=== PATIENT | male | born 1995 | race Caucasian/White ===

== ENCOUNTER 2017-12-28 16:03 | Emergency (ER) | payer OTHER ==
[~2017-12-28] VITALS: Ht 180.3 cm; Wt 124.2 kg
[2017-12-28 16:05] VITALS: TEMP 37.1; O2SAT 98; Ht 180.3 cm; Wt 124.2 kg
[2017-12-28] MEDS ORDERED: ACETAMINOPHEN 325 MG TAB PO STA (16:14)
[2017-12-28] MEDS ORDERED: SODIUM CHLORIDE 0.9% 500ML 500 ML IV STA (16:14)
[2017-12-28] MEDS ORDERED: SODIUM CHLORIDE 0.9% 1000ML 1,000 ML IV STA (16:14)
--- NOTE | 2017-12-28 16:17 | EMERGENCY ROOM VISIT NOTE ---
History Report prepared by Alondra: Mary Banks Under the Supervision of: Dr. Carmen Barry M.D. First contact with patient: 16:11 Chief Complaint: CHEST PAIN Stated Complaint: CHEST PAIN History of Present Illness The patient is a 22 year old male who presents to the Emergency Room with complaints of left-sided chest pain beginning shortly prior to arrival. He describes the pain as sharp. He states that the pain came on when he was walking and states that he was also having pulsations in his head. He states that he had the chest pain about 3 times and that he had the pulsations about 6 times. The patient currently reports having the pulsation feeling in his head but not the chest pain. The patient reports that his pulsation in his head feels slower than his pulse. The patient denies having any visual changes or shortness of breath. The patient reports feeling well prior to his symptoms today. The patient reports eating a snack before he left for work today. He states that he has asthma and that he uses an inhaler. The patient denies a history of smoking. The patient denies recent trips, surgeries, and hospitalizations. He also denies drinking last night. Source of History: patient Onset: shortly prior to arrival Position: chest (left) Quality: sharp Associated Symptoms: + headache (pulsations in his head), No SOB Note: denies: visual changes Review of Systems See HPI for pertinent positives & negatives. A total of 10 systems reviewed and were otherwise negative. Past Medical & Surgical Medical Problems: (1) Asthma Family History Patient reports no known family medical history. Social History Smoking Status: Never Smoker Marital Status: single Occupation Status: employed Current/Historical Medications Scheduled PRN Albuterol Hfa (Ventolin Hfa), 2 PUFFS INH Q4H PRN for Rescue/SOB Allergies Coded Allergies: No Known Allergies (Unverified , 12/28/17) Physical Exam Vital Signs Date Time Temp Pulse Resp B/P (MAP) Pulse Ox O2 Delivery O2 Flow Rate FiO2 12/28/17 18:21 59 18 104/62 97 12/28/17 17:41 67 18 102/61 98 Room Air 12/28/17 17:02 52 18 144/68 98 Room Air 66 114/68 64 135/79 12/28/17 16:31 57 12/28/17 16:05 98 Room Air 12/28/17 16:05 98 Room Air 12/28/17 16:05 37.1 56 16 105/46 98 Room Air Physical Exam Vital signs reviewed. General: Well-appearing male, in no significant distress. HEENT: No scleral icterus, PERRLA, neck supple. Atraumatic. Cardiovascular: Regular rate and rhythm, no extra sounds. Pulmonary: Clear to auscultation bilaterally, normal work of breathing. Abdomen: Soft, nontender, nondistended, positive bowel sounds. Musculoskeletal: Atraumatic, no peripheral edema. Neurologic: Patient awake alert and oriented x 3 Skin: Warm, dry, no rash Medical Decision & Procedures ER Provider Diagnostic Interpretation: Radiology results as stated below per my review and radiologist interpretation: CHEST ONE VIEW PORTABLE CLINICAL HISTORY: Chest pain. COMPARISON STUDY: No previous studies for comparison. FINDINGS: Lung volumes are at the lower limits of normal. There is no consolidation or evidence for pulmonary edema. No pneumothorax or pleural effusion is noted. Cardiomediastinal silhouette is unremarkable. IMPRESSION: No acute cardiopulmonary findings. Electronically signed by: Jase Altman M.D. 12/28/2017 4:38 PM Dictated Date/Time: 12/28/2017 4:38 PM Laboratory Results 12/28/17 16:45 Red Blood Count 5.14, Mean Corpuscular Volume 81.1, Mean Corpuscular Hemoglobin 28.2, Mean Corpuscular Hemoglobin Concent 34.8, Mean Platelet Volume 9.0, Neutrophils (%) (Auto) 57.3, Lymphocytes (%) (Auto) 32.2, Monocytes (%) (Auto) 7.6, Eosinophils (%) (Auto) 2.3, Basophils (%) (Auto) 0.3, Neutrophils # (Auto) 3.56, Lymphocytes # (Auto) 2.00, Monocytes # (Auto) 0.47, Eosinophils # (Auto) 0.14, Basophils # (Auto) 0.02 12/28/17 16:45 Test 12/28/17 16:45 White Blood Count 6.21 K/uL (4.8-10.8) Red Blood Count 5.14 M/uL (4.7-6.1) Hemoglobin 14.5 g/dL (14.0-18.0) Hematocrit 41.7 % (42-52) Mean Corpuscular Volume 81.1 fL (80-100) Mean Corpuscular Hemoglobin 28.2 pg (25-34) Mean Corpuscular Hemoglobin Concent 34.8 g/dl (32-36) Platelet Count 225 K/uL (130-400) Mean Platelet Volume 9.0 fL (7.4-10.4) Neutrophils (%) (Auto) 57.3 % Lymphocytes (%) (Auto) 32.2 % Monocytes (%) (Auto) 7.6 % Eosinophils (%) (Auto) 2.3 % Basophils (%) (Auto) 0.3 % Neutrophils # (Auto) 3.56 K/uL (1.4-6.5) Lymphocytes # (Auto) 2.00 K/uL (1.2-3.4) Monocytes # (Auto) 0.47 K/uL (0.11-0.59) Eosinophils # (Auto) 0.14 K/uL (0-0.5) Basophils # (Auto) 0.02 K/uL (0-0.2) RDW Standard Deviation 37.6 fL (36.4-46.3) RDW Coefficient of Variation 12.6 % (11.5-14.5) Immature Granulocyte % (Auto) 0.3 % Immature Granulocyte # (Auto) 0.02 K/uL (0.00-0.02) Anion Gap 7.0 mmol/L (3-11) Est Creatinine Clear Calc Drug Dose 149.6 ml/min Estimated GFR () 118.1 Estimated GFR (Non- 101.9 BUN/Creatinine Ratio 10.4 (10-20) Calcium Level 9.3 mg/dl (8.5-10.1) Magnesium Level 1.8 mg/dl (1.8-2.4) Total Bilirubin 0.7 mg/dl (0.2-1) Direct Bilirubin 0.2 mg/dl (0-0.2) Aspartate Amino Transf (AST/SGOT) 21 U/L (15-37) Alanine Aminotransferase (ALT/SGPT) 38 U/L (12-78) Alkaline Phosphatase 84 U/L (45-117) Troponin I < 0.015 ng/ml (0-0.045) Total Protein 7.7 gm/dl (6.4-8.2) Albumin 4.1 gm/dl (3.4-5.0) Laboratory results per my review. Medications Administered Medications (Trade) Dose Ordered Sig/[place] Route Start Time Stop Time Status Last Admin Dose Admin Acetaminophen (Tylenol Tab) 650 mg NOW STAT PO 12/28/17 16:14 12/28/17 16:16 DC 12/28/17 17:01 650 MG Sodium Chloride 500 ml @ 999 mls/hr Q31M STAT IV 12/28/17 16:14 12/28/17 16:44 DC 12/28/17 17:01 999 MLS/HR Sodium Chloride 1,000 ml @ 200 mls/hr Q5H STAT IV 12/28/17 16:14 12/28/17 21:13 DC 12/28/17 16:14 200 MLS/HR ECG Per My Interpretation Indication: chest pain Rate (beats per minute): 63 Rhythm: sinus with SA Findings: ST elevation (nonspecific, consistent with early repolarization), no acute ischemic change, no ectopy ED Course 1611: Past medical records reviewed. The patient was evaluated in room B2. A complete history and physical examination was performed. Medical Decision Differential diagnosis: Etiologies such as cardiac ischemia, aortic dissection, pulmonary embolism, pneumonia, pneumothorax, musculoskeletal, infections, pericarditis, myocarditis , esophageal rupture, gastrointestinal, as well as others were entertained. This patient was evaluated and appeared to be in no significant distress. IV access was obtained and laboratory work was drawn. Chest x-ray was obtained and is negative. Patient was given Tylenol 650 mg p.o. for his headache. He was hydrated with normal saline solution. EKG reveals no evidence of acute ischemia, there is J-point elevation consistent with early repolarization. Troponin is negative. The patient has no significant risk factors for PE, vital signs are stable. Patient was reevaluated and informed of the findings. He feels comfortable with the plan for discharge. He will follow-up with his PCP for reevaluation this week and return to the ED for worsening of symptoms or any medical concerns. Medication Reconcilliation Current Medication List: was personally reviewed by me Blood Pressure Screening Patient's blood pressure: Normal blood pressure Impression Primary Impression: Substernal chest pain Additional Impression: Headache Scribe Attestation The scribe's documentation has been prepared under my direction and personally reviewed by me in its entirety. I confirm that the note above accurately reflects all work, treatment, procedures, and medical decision making performed by me. Departure Information Referrals No Doctor, Assigned (PCP) Patient Instructions [facility] Problem Qualifiers
--- NOTE | 2017-12-28 16:40 | DIAGNOSTIC IMAGING REPORT ---
CHEST ONE VIEW PORTABLE CLINICAL HISTORY: Chest pain. COMPARISON STUDY: No previous studies for comparison. FINDINGS: Lung volumes are at the lower limits of normal. There is no consolidation or evidence for pulmonary edema. No pneumothorax or pleural effusion is noted. Cardiomediastinal silhouette is unremarkable. IMPRESSION: No acute cardiopulmonary findings. Electronically signed by: Jase Altman M.D. 12/28/2017 4:38 PM Dictated Date/Time: 12/28/2017 4:38 PM
[2017-12-28] MEDS ORDERED: VNTHFA/IN INH (16:44)
[2017-12-28 17:09] LABS: BASO % 0.3 %; BASO ABS # 0.02 K/uL (0-0.2); EOS % 2.3 %; EOS ABS # 0.14 K/uL (0-0.5); HEMATOCRIT 41.7 % (42-52); HEMOGLOBIN 14.5 g/dL (14.0-18.0); IG# 0.02 K/uL (0.00-0.02); LYMPH % 32.2 %; MEAN CELL VOLUME 81.1 fL (80-100); MEAN CORPUSCULAR HEMOGLOBIN 28.2 pg (25-34); MEAN CORPUSCULAR HGB CONC 34.8 g/dl (32-36); MONO % 7.6 %; MONO ABS # 0.47 K/uL (0.11-0.59); NEUT % 57.3 %; NEUT ABS # 3.56 K/uL (1.4-6.5); PLATELET COUNT 225 K/uL (130-400); RED CELL DISTRIBUTION WIDTH CV 12.6 % (11.5-14.5); RED CELL DISTRIBUTION WIDTH SD 37.6 fL (36.4-46.3); WHITE BLOOD COUNT 6.21 K/uL (4.8-10.8)
[2017-12-28 17:35] LABS: ALBUMIN 4.1 gm/dl (3.4-5.0); ALKALINE PHOSPHATASE 84 U/L (45-117); ALT/SGPT 38 U/L (12-78); AST/SGOT 21 U/L (15-37); BLOOD UREA NITROGEN 11 mg/dl (7-18); CALCIUM 9.3 mg/dl (8.5-10.1); CARBON DIOXIDE 29 mmol/L (21-32); CREATININE 1.03 mg/dl (0.60-1.40); GLUCOSE 85 mg/dl (70-99); POTASSIUM 3.8 mmol/L (3.5-5.1); SODIUM 140 mmol/L (136-145); TOTAL PROTEIN 7.7 gm/dl (6.4-8.2)
[2017-12-28 18:21] VITALS: BP 104/62; PULSE 59; O2SAT 97
== END 2017-12-28 18:22 | disposition home or self-care (01) ==
LOC: C.EDB 16:06
DX: R07.2 Precordial pain (principal); R51 Headache; J45.909 Unspecified asthma, uncomplicated